=== PATIENT | female | born 1975 | race Caucasian/White ===

== ENCOUNTER 2020-12-11 17:04 | Emergency (ER) | payer OTHER, MEDICAID ==
[~2020-12-11] VITALS: Ht 154.9 cm; Wt 52.2 kg
[2020-12-11] MEDS ORDERED: KLONOPIN1 MG PO (17:17)
[2020-12-11] MEDS ORDERED: LAMICTAL200 MG PO (17:17)
[2020-12-11] MEDS ORDERED: VRAYLAR3 MG PO (17:17)
[2020-12-11] MEDS ORDERED: VYVANSE70 MG PO (17:17)
[2020-12-11] MEDS ORDERED: LISINOPRIL20 MG PO (17:18)
[2020-12-11 17:30] LABS: URINE BILIRUBIN NEGATIVE (Negative); URINE BLOOD NEGATIVE (Negative); URINE CLARITY CLEAR; URINE COLOR YELLOW; URINE GLUCOSE-RANDOM NEGATIVE (Negative); URINE KETONES NEGATIVE (Negative); URINE LEUKOCYTES-REFLEX NEGATIVE (Negative); URINE NITRITE-REFLEX NEGATIVE (Negative); URINE PROTEIN NEGATIVE (Negative); URINE UROBILINOGEN 0.2 E.U./dl (0.2-1.0)
[2020-12-11 17:40] LABS: ABSOLUTE EOSINOPHILS 0.1 thou/uL (0.0-0.7); ABSOLUTE MONOCYTES 0.4 thou/uL (0.0-1.2); ABSOLUTE NEUTROPHILS 3.3 thou/uL (1.6-8.1); BASOPHILS 0.7 %; EOSINOPHILS 1.5 %; HEMATOCRIT 42.4 % (37.0-47.0); HEMOGLOBIN 13.9 gm/dL (12.0-15.0); LYMPHOCYTES 44.1 %; MCH 28.8 pg (26.0-34.0); MCHC 32.9 g/dL (28.0-37.0); MCV 87.4 fL (80.0-100.0); MONOCYTES 5.5 %; MPV 6.6 fl. (7.2-11.1); NUCLEATED RBCS 0 /100WBC; PLATELET COUNT* 347 thou/uL (150-400); POLYS 48.2 %; RBC 4.85 mil/uL (4.20-5.00); RDW-CV 16.3 % (10.5-14.5); WBC 6.8 thou/uL (4.0-11.0)
[2020-12-11 17:42] LABS: AMP/METHAMP Negative (Negative); BARBITURATES Negative (Negative); BENZODIAZEPINES Negative (Negative); COCAINE Negative (Negative); METHADONE Negative (Negative); OPIATES Negative (Negative); PCP Negative (Negative); THC Negative (Negative)
[2020-12-11 17:48] LABS: CALCIUM 9.1 mg/dL (8.5-10.1); CREATININE 0.6 mg/dL (0.6-1.3); POTASSIUM 3.4 mmol/L (3.5-5.1)
[2020-12-11 17:53] LABS: ALBUMIN 3.8 g/dL (3.4-5.0); TOTAL BILIRUBIN 0.2 mg/dL (<0.1-1.0); TOTAL PROTEIN 7.7 g/dL (6.4-8.2)
[2020-12-11 18:01] LABS: ACETAMINOPHEN < 2 ug/mL (10-30); ALCOHOL 249 mg/dL (<10); SALICYLATE < 2.8 mg/dL (2.8-20.0)
[2020-12-12 09:44] VITALS: BP 120/70
== END 2020-12-12 09:46 ==
LOC: M.ERS 17:04
PROVIDERS: Emergency Medicine Emergency Medical Services
DX: R45.851 Suicidal ideations (principal); Z20.822 Contact with and (suspected) exposure to COVID-19; Z88.2 Allergy status to sulfonamides; Z79.899 Other long term (current) drug therapy

== ENCOUNTER 2021-04-04 10:57 | Emergency (ER) | payer OTHER, MEDICAID ==
[~2021-04-04] VITALS: Ht 165.1 cm; Wt 59.0 kg
[~2021-04-04 10:57] MED LIST: KLONOPIN1 MG PO; LAMICTAL200 MG PO; LISINOPRIL20 MG PO; VRAYLAR3 MG PO; VYVANSE70 MG PO
[2021-04-04] MEDS ORDERED: NEURONTIN100 MG PO (11:18)
[2021-04-04 11:23] LABS: ABSOLUTE BASOPHILS 0.1 thou/uL (0.0-0.2); ABSOLUTE EOSINOPHILS 0.1 thou/uL (0.0-0.7); ABSOLUTE LYMPHOCYTES 1.4 thou/uL (0.8-5.3); ABSOLUTE MONOCYTES 0.3 thou/uL (0.0-1.2); BASOPHILS 0.8 %; EOSINOPHILS 0.6 %; HEMATOCRIT 44.2 % (37.0-47.0); HEMOGLOBIN 14.4 gm/dL (12.0-15.0); MCH 28.7 pg (26.0-34.0); MCHC 32.6 g/dL (28.0-37.0); MCV 88.1 fL (80.0-100.0); MONOCYTES 2.8 %; MPV 6.5 fl. (7.2-11.1); NUCLEATED RBCS 0 /100WBC; PLATELET COUNT* 318 thou/uL (150-400); POLYS 81.8 %; RBC 5.02 mil/uL (4.20-5.00); RDW-CV 14.5 % (10.5-14.5); WBC 9.7 thou/uL (4.0-11.0)
[2021-04-04 11:30] LABS: CALCIUM 8.9 mg/dL (8.5-10.1); CREATININE 0.7 mg/dL (0.6-1.3); POTASSIUM 3.8 mmol/L (3.5-5.1)
[2021-04-04 11:35] LABS: ALBUMIN 4.5 g/dL (3.4-5.0); TOTAL BILIRUBIN 0.2 mg/dL (<0.1-1.0); TOTAL PROTEIN 7.8 g/dL (6.4-8.2)
[2021-04-04 11:41] LABS: URINE BILIRUBIN NEGATIVE (Negative); URINE BLOOD NEGATIVE (Negative); URINE CLARITY CLEAR; URINE COLOR YELLOW; URINE GLUCOSE-RANDOM NEGATIVE (Negative); URINE KETONES TRACE (Negative); URINE LEUKOCYTES-REFLEX NEGATIVE (Negative); URINE NITRITE-REFLEX NEGATIVE (Negative); URINE PROTEIN NEGATIVE (Negative); URINE UROBILINOGEN 0.2 E.U./dl (0.2-1.0)
[2021-04-04 11:42] LABS: AMP/METHAMP Negative (Negative); BARBITURATES Negative (Negative); BENZODIAZEPINES Negative (Negative); COCAINE Negative (Negative); METHADONE Negative (Negative); OPIATES Negative (Negative); PCP Negative (Negative); THC POSITIVE (Negative)
[2021-04-04 11:43] LABS: ALCOHOL < 10 mg/dL (<10); SALICYLATE < 2.8 mg/dL (2.8-20.0)
[2021-04-04 11:44] LABS: ACETAMINOPHEN < 2 ug/mL (10-30)
[2021-04-04 16:09] VITALS: BP 135/84
== END 2021-04-04 16:10 | disposition home or self-care (01) ==
LOC: M.ERS 10:57
PROVIDERS: Emergency Medicine Emergency Medical Services
DX: F32.9 Major depressive disorder, single episode, unspecified (principal); I10 Essential (primary) hypertension; F41.9 Anxiety disorder, unspecified; F98.8 Other specified behavioral and emotional disorders with onset usually occurring in childhood and adolescence; Z79.899 Other long term (current) drug therapy; Z88.1 Allergy status to other antibiotic agents

== ENCOUNTER 2021-04-05 17:56 | Emergency (ER) | payer OTHER, MEDICAID ==
[~2021-04-05] VITALS: Ht 154.9 cm; Wt 59.0 kg
[~2021-04-05 17:56] MED LIST changes: +NEURONTIN100 MG PO
[2021-04-05 18:42] LABS: URINE BILIRUBIN NEGATIVE (Negative); URINE BLOOD NEGATIVE (Negative); URINE CLARITY CLEAR; URINE COLOR YELLOW; URINE GLUCOSE-RANDOM NEGATIVE (Negative); URINE KETONES NEGATIVE (Negative); URINE LEUKOCYTES-REFLEX TRACE (Negative); URINE NITRITE-REFLEX NEGATIVE (Negative); URINE PROTEIN NEGATIVE (Negative); URINE UROBILINOGEN 0.2 E.U./dl (0.2-1.0)
[2021-04-05 18:48] LABS: MUCUS 0-3 Light strn/LPF (None Seen); SQUAMOUS >10 Many /LPF (0-3)
[2021-04-05 18:49] LABS: CASTS None Seen /LPF (None Seen); CRYSTALS None Seen /LPF (None Seen); URINE WBC-REFLEX 6-15 Few /HPF (0-5)
[2021-04-05 18:49] LABS: AMP/METHAMP Negative (Negative); BARBITURATES Negative (Negative); BENZODIAZEPINES Negative (Negative); COCAINE Negative (Negative); METHADONE Negative (Negative); OPIATES Negative (Negative); PCP Negative (Negative); THC POSITIVE (Negative)
[2021-04-05 18:50] LABS: URINE RBC 0-2 Rare /HPF (0-2)
[2021-04-05 18:51] LABS: BACTERIA-REFLEX 1-9 Few /HPF (None Seen)
[2021-04-05 19:06] LABS: ABSOLUTE BASOPHILS 0.1 thou/uL (0.0-0.2); ABSOLUTE EOSINOPHILS 0.1 thou/uL (0.0-0.7); ABSOLUTE LYMPHOCYTES 2.6 thou/uL (0.8-5.3); ABSOLUTE MONOCYTES 0.3 thou/uL (0.0-1.2); ABSOLUTE NEUTROPHILS 3.5 thou/uL (1.6-8.1); BASOPHILS 0.9 %; EOSINOPHILS 1.1 %; HEMATOCRIT 43.7 % (37.0-47.0); HEMOGLOBIN 14.2 gm/dL (12.0-15.0); LYMPHOCYTES 39.9 %; MCH 28.6 pg (26.0-34.0); MCHC 32.6 g/dL (28.0-37.0); MCV 87.6 fL (80.0-100.0); MONOCYTES 5.1 %; MPV 6.6 fl. (7.2-11.1); NUCLEATED RBCS 0 /100WBC; PLATELET COUNT* 325 thou/uL (150-400); RBC 4.99 mil/uL (4.20-5.00); RDW-CV 14.2 % (10.5-14.5); WBC 6.6 thou/uL (4.0-11.0)
[2021-04-05 19:14] LABS: CALCIUM 8.2 mg/dL (8.5-10.1); CREATININE 0.9 mg/dL (0.6-1.3); POTASSIUM 3.3 mmol/L (3.5-5.1)
[2021-04-05 19:18] LABS: ALBUMIN 3.9 g/dL (3.4-5.0); TOTAL BILIRUBIN 0.2 mg/dL (<0.1-1.0); TOTAL PROTEIN 7.3 g/dL (6.4-8.2)
[2021-04-05 19:23] LABS: ALCOHOL 137 mg/dL (<10); SALICYLATE < 2.8 mg/dL (2.8-20.0)
[2021-04-05 19:31] LABS: ACETAMINOPHEN < 2 ug/mL (10-30)
[2021-04-06 01:53] VITALS: BP 127/79
== END 2021-04-06 01:54 | disposition home or self-care (01) ==
LOC: M.ERS 17:56
PROVIDERS: Emergency Medicine Emergency Medical Services
DX: R45.851 Suicidal ideations (principal); I10 Essential (primary) hypertension; F41.9 Anxiety disorder, unspecified; F98.8 Other specified behavioral and emotional disorders with onset usually occurring in childhood and adolescence; Z88.1 Allergy status to other antibiotic agents; Z79.899 Other long term (current) drug therapy

== ENCOUNTER 2021-05-12 17:47 | Emergency (ER) | payer OTHER, MEDICAID ==
[~2021-05-12] VITALS: Ht 154.9 cm; Wt 63.5 kg
[2021-05-12] MEDS ORDERED: SEROQUEL 100 M100 M1 PO (18:08)
[2021-05-12 18:24] LABS: URINE BILIRUBIN NEGATIVE (Negative); URINE BLOOD NEGATIVE (Negative); URINE CLARITY CLEAR; URINE COLOR YELLOW; URINE GLUCOSE-RANDOM NEGATIVE (Negative); URINE KETONES TRACE (Negative); URINE LEUKOCYTES-REFLEX NEGATIVE (Negative); URINE NITRITE-REFLEX NEGATIVE (Negative); URINE PROTEIN NEGATIVE (Negative); URINE SPECIFIC GRAVITY >= 1.030 (1.005-1.030); URINE UROBILINOGEN 0.2 E.U./dl (0.2-1.0)
[2021-05-12 18:34] LABS: AMP/METHAMP Negative (Negative); BARBITURATES Negative (Negative); BENZODIAZEPINES POSITIVE (Negative); COCAINE Negative (Negative); METHADONE Negative (Negative); OPIATES Negative (Negative); PCP Negative (Negative); THC POSITIVE (Negative)
[2021-05-12 18:43] LABS: ABSOLUTE BASOPHILS 0.1 thou/uL (0.0-0.2); ABSOLUTE LYMPHOCYTES 1.3 thou/uL (0.8-5.3); ABSOLUTE MONOCYTES 0.4 thou/uL (0.0-1.2); ABSOLUTE NEUTROPHILS 6.6 thou/uL (1.6-8.1); BASOPHILS 0.8 %; EOSINOPHILS 0.3 %; HEMATOCRIT 40.5 % (37.0-47.0); HEMOGLOBIN 13.5 gm/dL (12.0-15.0); LYMPHOCYTES 15.6 %; MCH 28.7 pg (26.0-34.0); MCHC 33.4 g/dL (28.0-37.0); MONOCYTES 5.1 %; MPV 6.7 fl. (7.2-11.1); NUCLEATED RBCS 0 /100WBC; PLATELET COUNT* 320 thou/uL (150-400); POLYS 78.2 %; RBC 4.71 mil/uL (4.20-5.00); RDW-CV 13.8 % (10.5-14.5); WBC 8.4 thou/uL (4.0-11.0)
[2021-05-12 19:01] LABS: CALCIUM 8.9 mg/dL (8.5-10.1); CREATININE 0.7 mg/dL (0.6-1.3); POTASSIUM 4.1 mmol/L (3.5-5.1)
[2021-05-12 19:05] LABS: ALBUMIN 4.2 g/dL (3.4-5.0); TOTAL BILIRUBIN 0.4 mg/dL (<0.1-1.0); TOTAL PROTEIN 7.6 g/dL (6.4-8.2)
[2021-05-12 19:11] LABS: ACETAMINOPHEN < 2 ug/mL (10-30); ALCOHOL 12 mg/dL (<10); SALICYLATE < 2.8 mg/dL (2.8-20.0)
[2021-05-12] MEDS ORDERED: HYDROXYZINE HCL25 M2 PO (21:36)
[2021-05-12 21:56] VITALS: BP 113/61
--- NOTE | 2021-05-13 15:45 | EKG ---
[place] [address] ELECTROCARDIOGRAM REPORT Name: ANGELICA MUELLER Room: [facility]#: [id number] Admission: 05/12/21 Attend Phys: Discharge: 05/12/21 Date of : 77 Date of Service: 05/12/21 174 Report #: [id number] THIS REPORT FOR: //name// [facility] ED Test Date: 2021-05-12 Test Time: 17:47:40 Pat Name: ANGELICA MUELLER Department: Room: Gender: Rn Rehab: Trish : 1975 Requested By: Jovita De La Cruz Order Number: [id number] MD: Leo El Measurements Intervals [place] Rate: 75 P: 73 [place]: 138 QRS: 73 QRSD: 77 T: 65 QT: 426 QTc: 476 Interpretive Statements Sinus rhythm Borderline prolonged QT interval Baseline wander in lead(s) II,III,aVF,V2,V3 No previous ECG available for comparison Electronically Signed On 05-13-2021 15:44:50 CDT by Leo El [email or web address] <ELECTRONICALLY SIGNED> By: Leo El MD, FACC 05/13/21 1544 [id number] Leo El MD, [facility] /EPI
== END 2021-05-12 21:56 | disposition home or self-care (01) ==
LOC: M.ERS 17:47
PROVIDERS: Nurse Practitioner Family
DX: F41.9 Anxiety disorder, unspecified (principal); Z20.822 Contact with and (suspected) exposure to COVID-19; R68.2 Dry mouth, unspecified; R45.851 Suicidal ideations; R11.0 Nausea; I10 Essential (primary) hypertension; F31.9 Bipolar disorder, unspecified; F98.8 Other specified behavioral and emotional disorders with onset usually occurring in childhood and adolescence; Z98.890 Other specified postprocedural states; Z88.2 Allergy status to sulfonamides; Z72.89 Other problems related to lifestyle